=== PATIENT | female | born 1975 | race Caucasian/White ===

== ENCOUNTER → 2016-12-13 | Outpatient (CLI) | payer BC ==
[~2016-12-13] MED LIST: ESCI10TA17 PO; PRENTAB26 PO
--- NOTE | 2016-12-14 13:34 | MAMMOGRAPHY REPORT ---
BILATERAL FIRST EVER DIGITAL SCREENING MAMMOGRAM TOMOSYNTHESIS WITH CAD: 12/13/2016 CLINICAL HISTORY: Routine screening. Baseline exam. TECHNIQUE: Breast tomosynthesis in addition to standard 2D mammography was performed. Current study was also evaluated with a Computer Aided Detection (CAD) system. COMPARISON: No prior exams were available for comparison. BREAST COMPOSITION: The tissue of both breasts is heterogeneously dense, which may obscure small ma sses. FINDINGS: No suspicious masses, calcifications, or areas of architectural distortion are noted in e ither breast. IMPRESSION: ACR BI-RADS CATEGORY 1: NEGATIVE There is no mammographic evidence of malignancy. A 1 year screening mammogram is recommended. The p atient will receive written notification of the results. Approximately 10% of breast cancers are not detected with mammography. A negative mammographic repor t should not delay biopsy if a clinically suggestive mass is present. Emma Dean M.D. ah/:12/13/2016 16:00:10 Paediatrician: Tracie PAL(Kyleigh)(M), [facility] letter sent: Normal 1/2 BI-RADS Code: ACR BI-RADS Category 1: Negative
== END | disposition home or self-care (01) ==
LOC: C.MAMM 15:33
PROVIDERS: ATTEND Obstetrics & Gynecology
DX: Z12.31 Encounter for screening mammogram for malignant neoplasm of breast (principal)

== ENCOUNTER 2024-06-05 08:49 | Inpatient (IN) ==
--- NOTE | 2024-05-02 14:11 | Anesthesiology Consultation ---
Date of Service May 02, 2024 Assessment & Plan (1) Encounter for pre-operative examination: - Per rig operator on 04/29/24: No known infectious disease contacts, current infectious disease symptoms in past 10 days or COVID positive test result in the past 30 days. Chart Review Chart Review: Acceptable Risk for Surgery and Patient NOT seen in Pre Admission Testing History Surgery Operation Date: 06/05/24 08:45 Proposed Procedures p Laparoscopic Sigmoid Colectomy - Aureliano Dos Santos, Height/Weight Height: 5 ft Weight: 68.946 kg Allergies Allergy/AdvReac Type Severity Reaction Status Date / Time animal dander Allergy Intermediate ITCHY, Verified 04/29/24 08:18 WATERY EYES, SNEEZING, CONGESTION pollen extracts Allergy Intermediate ITCHY, Verified 04/29/24 08:18 WATERY EYES, SNEEZING, CONGESTION Dust Allergy Intermediate ITCHY, Uncoded 04/29/24 08:18 WATERY EYS, SNEEZING, CONGESTION Medications Home Medications Medication Instructions Recorded Confirmed Last Taken escitalopram oxalate 10 mg tablet 10 mg PO QPM 04/15/20 04/29/24 04/09/24 (Lexapro) ketotifen fumarate 0.025 % (0.035 1 drp ophthalmic (eye) BID PRN 01/03/23 04/29/24 04/08/24 %) eye drops (Zaditor) allergy symptoms/springtime levocetirizine 5 mg tablet 5 mg PO QAM 01/03/23 04/29/24 04/09/24 hyuctbmvtowq-dexaoshw-whulkj tablet 1 tab PO QAM 03/25/24 04/29/24 04/08/24 omega 4-fzw-oke-fish oil 100 2 cap PO QAM 03/25/24 04/29/24 04/08/24 mg-160 mg-1,000 mg capsule (Fish Oil) pantoprazole 40 mg tablet,delayed 40 mg PO QAM 03/25/24 04/29/24 04/08/24 release Past Medical History Medical History Acid reflux Allergy-induced asthma no inhalers Anxiety Colon cancer (03/2024) Environmental and seasonal allergies History of COVID-2020, [facility] test, not hosp; "cold symptoms", body aches, headache, fatigue>resolved History of migraine History of palpitations intermittent, evaluated by pcp; holter monitor 01/2024; no cardio f/u Hx of colonic polyps x2 polyps found on 04/07/24 Postmenopausal Slow to wake up after anesthesia Past Family History Family History Mother Osteoporosis Dyslipidemia History of ductal carcinoma in situ (DCIS) of breast Hypertension Father WPW (Zebjs-Yiujefaei-Jenxq syndrome) Family history of thyroid dysfunction Family history of reaction to anesthesia difficulty waking Grandfather Prostate cancer Uncle Prostate cancer Other Breast cancer History of hypothyroidism Denies family history of Ovarian cancer Myocardial infarction Colorectal cancer Past Surgical History Surgical History History of appendectomy History of carpal tunnel release RT/LT. History of section, low transverse x2 History of colonoscopy Hx of tubal ligation Hx of wisdom tooth extraction Social History Smoking Status: Never smoker Do You Dip or Chew Tobacco: No Hx Alcohol Use: No Hx Substance Use: No substance use type: does not use Lab Results Anesthesia Preop Results Results Anesthesia Widget: WBC 5.42 K/ul (4.8-10.8) 04/10/24 Hgb 14.2 g/dl (12.0-16.0) 04/10/24 Hct 41.9 % (37.0-47.0) 04/10/24 Plt 336 K/uL (130-400) 04/10/24 Na 141 mmol/L (136-145) 04/10/24 K 3.9 mmol/L (3.5-5.1) 04/10/24 Cl 107 mmol/L (98-107) 04/10/24 CO2 29 mmol/L (21-32) 04/10/24 BUN 11 mg/dl (6-23) 04/10/24 Creat 0.72 mg/dl (0.6-1.2) 04/10/24 Glucose Level 87 mg/dl (70-99(Fasting)) 04/10/24 PT 10.9 Seconds (9.0-12.0) 04/10/24 INR 1.0 (0.9-1.1) 04/10/24 Testing Electrocardiogram Date: 02/08/24 NSR, rate 69 bpm Septal infarct, age undetermined No significant change vs 04/16/[address] 04/10/24 No evidence of metastatic disease above the diaphragm. Abdomen pelvis CT 04/10/24 Trace free fluid in the pelvis may be postprocedural. No findings to suggest metastatic disease. Cardiac event monitor 02/15/24 NSR Very rare premature atrial complexes No evidence of ventricular arrhythmia No pauses greater than 3 seconds or evidence of an AV block Symptoms (heart fluttering and skipped beats) correlated with the timing of PACs with 2 of the 11 documented episodes
--- NOTE | 2024-06-05 07:27 | History & Physical Report ---
Date of Service June 05, 2024 Assessment & Plan (1) Colon cancer: Plan: Clearly this should be resected for definitive treatment. We discussed the risks of the procedure previously. I have answered all of her questions. We will proceed today with laparoscopic sigmoid colon resection. History of Present Illness Primary Care Provider: KIMBERLEE Baxter Cori is a pleasant 48-year-old female who had a routine colonoscopy revealing a small sigmoid colon cancer. The pathology came back after resection and GI subsequently repeated her sigmoidoscopy and placed a tattoo at the site. There have been no major changes to her health history since I seen her last in the office. Allergies Allergy/AdvReac Type Severity Reaction Status Date / Time animal dander Allergy Intermediate ITCHY, Verified 06/05/24 09:07 WATERY EYES, SNEEZING, CONGESTION pollen extracts Allergy Intermediate ITCHY, Verified 06/05/24 09:07 WATERY EYES, SNEEZING, CONGESTION Dust Allergy Intermediate ITCHY, Uncoded 06/05/24 09:07 WATERY EYS, SNEEZING, CONGESTION Home Medications Medication Instructions Recorded Confirmed Type escitalopram oxalate 10 mg tablet 10 mg PO QPM 04/15/20 06/05/24 History (Lexapro) ketotifen fumarate 0.025 % (0.035 1 drp ophthalmic (eye) BID PRN 01/03/23 06/05/24 History %) eye drops (Zaditor) allergy symptoms/springtime levocetirizine 5 mg tablet 5 mg PO QAM 01/03/23 06/05/24 History kvowivcdirrh-dlydrzwx-jouymn tablet 1 tab PO QAM 03/25/24 06/05/24 History omega 6-aii-zym-fish oil 100 2 cap PO QAM 03/25/24 06/05/24 History mg-160 mg-1,000 mg capsule (Fish Oil) pantoprazole 40 mg tablet,delayed 40 mg PO QAM 03/25/24 06/05/24 History release Past Med/Surg History Problem List Colon cancer Postmenopausal Menopausal symptom Encounter for pre-operative examination Anxiety (Acute) Asthma (Acute) allergy-induced; no inh Classic migraine with aura (Acute) hx Medical History Acid reflux Allergy-induced asthma no inhalers Anxiety Colon cancer (03/2024) Environmental and seasonal allergies History of COVID-19 2020, [facility] test, not hosp; "cold symptoms", body aches, headache, fatigue>resolved History of migraine History of palpitations intermittent, evaluated by pcp; holter monitor 01/2024; no cardio f/u Hx of colonic polyps x2 polyps found on 04/07/24 Postmenopausal Slow to wake up after anesthesia Surgical History History of appendectomy History of carpal tunnel release RT/LT. History of section, low transverse x2 History of colonoscopy Hx of tubal ligation Hx of wisdom tooth extraction Family History Mother Osteoporosis Dyslipidemia History of ductal carcinoma in situ (DCIS) of breast Hypertension Father WPW (Jxbvz-Hxkejukya-Dkiul syndrome) Family history of thyroid dysfunction Family history of reaction to anesthesia difficulty waking Grandfather Prostate cancer Uncle Prostate cancer Other Breast cancer History of hypothyroidism Denies family history of Ovarian cancer Myocardial infarction Colorectal cancer Social History Smoking Status: Never smoker Second Hand Exposure: No; Do You Dip or Chew Tobacco: No; Tobacco Cessation Education Requested by Patient: No Hx Alcohol Use: No Hx Substance Use: No Preferred Language: Occitan Communication Ability: Effective 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: No Beliefs That Will Affect Care: None marital status: Current Living Situation: Spouse and Family current occupational status: employed current occupation: [employer] How many Children do You have: 2 Other Information That Helps Us Care for You: No Feels Safe at Home: Yes Safety Concerns: Feels Safe At This Time Diet: regular during the past year weight has: increased > 10 lbs Assistive Devices: Contacts and Glasses Review of Systems All systems reviewed & are unremarkable except as noted in HPI & below Physical Exam Constitutional: WD/WN, vitals as above no acute distress and not ill appearing Eyes: PERRL, conjunctivae normal, anicteric sclerae EOM intact bilaterally ENMT: external ear and nose normal, oropharynx normal Ears: no hearing impairment Neck: trachea midline, no thyromegaly Respiratory: normal respiratory effort; no respiratory distress and does not use accessory muscles Cardiovascular: Rate/Rhythm: regular rate and regular rhythm Gastrointestinal (Abdomen): normal bowel sounds, soft, nontender, no hepatosplenomegaly Skin: no rashes, warm and dry Psychiatric: Orientation: alert, oriented x 3 and cooperative
[~2024-06-05 08:49] MED LIST changes: +ACETAMINOPHEN 1000 MG/100 ML IV IV ONE; -ESCI10TA17 PO; -PRENTAB26 PO
[2024-06-05] MEDS: LR 15ML/HR IV SCH (09:23)
[2024-06-05] MEDS ORDERED: PROMETHAZINE HCL 6.25 MG in SODIUM CHLORIDE 0.9% 50 ML IV PRN (09:24)
[2024-06-05] MEDS ORDERED: ONDANSETRON INJ 2 MG/ML 2 ML VIAL IV PRN (09:24)
[2024-06-05] MEDS ORDERED: HYDROmorphone INJ 2 MG/ML SYR/VIAL IV PRN (09:24)
[2024-06-05] MEDS ORDERED: ATROPINE SULFATE 0.1 MG/ML 10ML SYR IV PRN (09:24)
[2024-06-05] MEDS ORDERED: ePHEDrine sulfate 50 MG/ML AMP IV PRN (09:24)
[2024-06-05] MEDS ORDERED: fentaNYL citrate PF 100 MCG/2 ML VIAL ONE ×2 (10:04→11:32)
[2024-06-05] MEDS ORDERED: MIDAZOLAM HCL 1 MG/ML 2ML VIAL ONE (10:04)
[2024-06-05] MEDS ORDERED: ONDANSETRON INJ 2 MG/ML 2 ML VIAL ONE ×2 (10:05→12:33)
[2024-06-05] MEDS ORDERED: LIDOCAINE 2% 2 ML VIAL/AMP(20MG/ML) INFIL ONE (10:05)
[2024-06-05] MEDS ORDERED: ROCURONIUM BROMIDE 10 MG/ML 5 ML VIAL IV ONE (10:05)
[2024-06-05] MEDS ORDERED: DEXAMETHASONE SOD INJ 4 MG/ML VIAL ONE (10:05)
[2024-06-05] MEDS ORDERED: PROPOFOL IV EMULSION 10 MG/ML 20 ML VIAL IV ONE (10:05)
[2024-06-05] MEDS: ceFAZolin 2000MG 2,000 MG/15 ML SYR IV SCH ×2 (10:26→17:38)
[2024-06-05] MEDS ORDERED: DROPERIDOL 5 MG/2 ML VIAL ONE (10:40)
[2024-06-05] MEDS ORDERED: ePHEDrine sulfate 50 MG/5 ML SYR ONE (11:03)
[2024-06-05] MEDS ORDERED: KETOROLAC 30 MG/ML VIAL ONE (12:34)
[2024-06-05] MEDS ORDERED: GLYCOPYRROLATE 0.2 MG/ML VIAL ONE (12:39)
[2024-06-05] MEDS ORDERED: NEOSTIGMINE METHYLSULFATE 1 MG/ML 10ML VIAL ONE (12:39)
[2024-06-05] MEDS: BUPIVACAINE/EPINEPHRINE 0.5% MPF 1:200,000 30 ML VIAL ONE (12:56)
--- NOTE | 2024-06-05 13:13 | Operative Report ---
PG Post Operative Report Pre & Post Diagnosis Operation Date: 06/05/24 10:15 Pre-Op Diagnosis: Colon Cancer Post-Op Diagnosis: Colon Cancer I identified the patient and participated in the time-out.: Yes Procedure Operation Date: 06/05/24 10:15 Actual Procedures p Laparoscopic Sigmoid Colectomy(Not Applicable) - Aureliano Dos Santos DO Surgeon Aureliano Dos Santos DO Head Of Physics garland herman Estimated Blood Loss 50 Findings Consistent with Post-Op Diagnosis Specimens sigmoid colon Description of Procedure After informed consent was obtained the patient was taken to the operating room placed in supine position. After successful intubation a Gonzalez catheter was placed sterilely. Both arms were tucked. The patient was placed in a low lithotomy position with yellowfin stirrups. The entire abdomen rectum and perineum were sterilely prepped and draped in usual fashion. I began with a supraumbilical incision with an 11 blade scalpel. This was carried down through the soft tissue using cautery. The anterior fascia was opened using cautery and two #0 Vicryl stay sutures were placed. Peritoneum was entered using blunt fing er penetration. Finger sweep was performed. A 12 mm Schroeder trocar was placed and the abdomen was insufflated to 18 mmHg. Laparoscope was inserted and the abdomen examined in 360 degrees. Other than a few adhesions in the right lower quadrant no other abnormalities were identified. A right lower quadrant 12 mm trocar was placed. A right mid abdominal 5 mm trocar and eventually a left lower quadrant 5 mm trocar would all be placed under direct vision. I took down the adhesions using the harmonic scalpel. I then evaluated the sigmoid colon. I was readily able to identify both tattoo dunn in the sigmoid colon. I began by mobilizing the white line of Toldt using blunt dissection and small amounts of harmonic scalpel. We were able to identify the left ureter to keep it out of harm's way. Once I had the colon fully mobilized down over the sacral promontory I then made a small window in the mesentery of the rectosigmoid distal to the tattoo vipul. I then used a JOSE LUIS purple cartridge stapler to transect the rectosigmoid again distal to the distalmost tattoo vipul. I then used traction countertraction and harmonic scalpel to slowly take down the mesentery staying as low as possible to incorporate as many lymph nodes as possible. I carried this up for several inches proximal to the proximal tattoo vipul. At this point we extended the left lower quadrant trocar site including the fascia. I was able to deliver the sigmoid colon out through this incision after toweling it off. Bowel clamps were placed and the bowel was divided and sent to pathology. I did vipul the distal end with suture for orientation purposes. We then used sizers to estimate the lumen size to be 25 mm. 2-0 silk was used to create a handsewn pursestring. The anvil of a 25 mm circular stapler was placed into the end of the bowel and it was secured using the pursestring. This was replaced back into the abdominal cavity. At this point in time we changed our gloves. I closed the fascia of the left lower quadrant incision using #1 PDS in running fashion. We re-insufflated the abdomen. The anvil laid over the sacral promontory without any tension. There was no evidence of any ischemia. Next we brought sizers in through the rectum into the rectal stump. We followed this with the handle of the EEA. The spike was deployed anterior to the staple line. The handle was connected to the anvil, they were secured together and fired creating a functional end-to-end anastomosis. Both donuts were intact and the anastomosis looked patent with no ischemia. We did insufflate the anastomosis under water and it was completely airtight. I thoroughly irrigated the lower abdomen. At the end of the procedure there was adequate hemostasis. A 10 flat Chadwick-Torres drain was placed in the pelvis and brought out through the right lower quadrant trocar site. It was secured the skin using 0 Vicryl. Trocars were all removed and the abdomen desufflated. The fascia the camera port was closed using 0 Vicryl in a [id number] fashion. All the wounds were irrigated. The larger incision was closed using 3-0 Vicryl for deep layers and 4 Monocryl for skin. The smaller incisions were closed using 4-0 Monocryl. Marcaine with epinephrine was injected around them for postoperative analgesia and skin glue used as a dressing. Patient was awakened extubated and transferred to recovery in stable condition. My nurse practitioner was present for the entire case was instrumental in gaining access to the abdomen, running the camera, assisting with the anastomosis, wound closure and dressing placement. I attest to the content of the Intraoperative Record and any orders documented therein. Any exceptions are noted below.
[2024-06-05] MEDS: fentaNYL citrate PF 100 MCG/2 ML VIAL IV PRN (13:50)
--- NOTE | 2024-06-05 14:07 | Anesthesiology Progress Note ---
Date of Service June 05, 2024 Anesthesia Post Procedure Vital Signs Vital Signs: Temp Pulse Pulse Resp BP Pulse Ox O2 Del Method 06/05/24 14:00 86 14 112/61 96 Nasal Cannula 06/05/24 13:50 85 16 129/60 90 Room Air 06/05/24 13:40 85 14 127/63 94 Room Air 06/05/24 13:30 87 16 110/61 94 Room Air 06/05/24 13:20 83 18 124/62 100 Oxymask 06/05/24 13:09 36.2 C L 89 16 129/68 96 Oxymask 06/05/24 09:12 37.1 C 69 18 123/78 95 Room Air O2 Flow Rate 06/05/24 14:00 2 06/05/24 13:50 06/05/24 13:40 06/05/24 13:30 06/05/24 13:20 3 06/05/24 13:09 6 06/05/24 09:12 Pain Intensity Abdomen: Pain Intensity: 4 Transfer of Care Handoff Completed per policy Notes Mental Status: alert / awake / arousable Patient Amnestic to Procedure: Yes Nausea / Vomiting: adequately controlled Pain: adequately controlled Airway Patency, RR, SpO2: stable & adequate BP & HR: stable & adequate Hydration State: stable & adequate Anesthetic Complications: no major complications apparent and Pt Satisfied with anesthetic care
[2024-06-05] MEDS ORDERED: MoRPHine SULFATE 2 MG/ML CARP IV PRN (14:46)
[2024-06-05] MEDS ORDERED: MoRPHine SULFATE 4 MG/ML 1 ML CARP\\VIAL IV PRN (14:46)
[2024-06-05] MEDS: LACTATED RINGER'S 1,000 ML IV SCH (14:57)
[2024-06-05] MEDS: ACETAMINOPHEN 1,000 MG/100 ML VIAL IV SCH (14:57)
--- NOTE | 2024-06-05 20:07 | Communication Note ---
Date of Service: June 05, 2024 I was called by nursing staff at approximately 7:40 PM. This patient was complaining of pain in her right eye saying it felt irritated and as though she had scratched it. I presented to the bedside within 5 minutes to evaluate the patient. The patient was resting comfortably in bed. As noted above she felt as though she had scratched her eye. She does note that it is somewhat difficult to keep the eye open but she denies any blurry or loss of vision she does note that her eye is watering. She offers no other complaints. On physical exam the patient's eye was intermittently watering with clear fluid. Pupils were equal round reactive to light and accommodation. Her extraocular motions are intact. Patient's visual acuity appeared intact and she was able to read a small print book at the bedside with her affected eye. She could also identify large objects from a distance of approximately 5 feet. I suspect the patient has a corneal abrasion. I discussed with ophthalmology in addition to corneal abrasion patient could merely have a dry spot on her cornea which would have similar symptomatology. Erythromycin ointment was recommended as a treatment. I discussed dosing with pharmacy and this has been ordered to begin this evening. Will continue to monitor the patient.
[2024-06-05] MEDS: ESCITALOPRAM OXALATE 10 MG TAB PO SCH (20:24)
[2024-06-05] MEDS: ERYTHROMYCIN OP OINT 5 MG/GM 3.5 GM TUBE OPR SCH (21:34)
[2024-06-06] MEDS: oxyCODONE HCL IR 5 MG TAB (IMMEDIATE RELEASE) PO PRN ×2 (03:18→20:31)
[2024-06-06] MEDS: ONDANSETRON INJ 2 MG/ML 2 ML VIAL IV PRN (04:01)
[2024-06-06] MEDS: PANTOprazole 40 MG TAB PO SCH (07:51)
[2024-06-06] MEDS: CETIRIZINE HCL 10 MG TABLET PO SCH (07:51)
--- NOTE | 2024-06-06 07:58 | Surgery Progress Note ---
Date of Service June 06, 2024 Assessment & Plan (1) S/P laparoscopic-assisted sigmoidectomy: Plan: POD#1 lap sigmoidectomy Labs this AM are pending. Vitals are stable, pt afebrile Continue sips/chips this AM, may consider clears later if no further nausea Will discuss with RN urine output as only 100cc documented and make determination of woods removal today vs karen Awaiting hbg results, if stable will start dvt ppx MADHAV drain to remain in place Awaiting return of bowel function Erythromycin to eyes for concern of corneal abrasion, symptoms improved Encourage pulmonary toilet and ambulation [facility] covering the wknd as above. doing well. feeling much better since woods removed. eye pain much improved as well. earlier nausea resolved as well ice chips/sips for now. if she does well over the weekend she may have clears tomorrow. Admission and Anticipated Discharge Date Admission Date: June 05, 2024 Subjective Patient feeling pretty well, had an episode of pain at 3am in lower abdomen and received some pain meds. Mild nausea and received some zofran. Otherwise symptoms controlled this AM. Eye discomfort she said is 100% better than yesterday and no issues from that standpoint. Physical Exam Physical Exam: awake/alert, no distress Respiratory: normal respiratory effort Gastrointestinal (Abdomen): Inspection/Auscultation: + abdominal surgical incision (c/d/i with skin glue, no signs of infection) and + abdominal surgical drain present (serosang, 40cc documented) Percussion/Palpation: + abdomen tender (expected yamilex incisional discomfort to palpation ) and abdomen soft Results & Data Vital Signs (Past 12 Hours) Vital Signs Temp Pulse Pulse Resp BP Pulse Ox O2 Del Method 06/06/24 07:16 98.6 F 91 H 18 111/69 98 Room Air 06/06/24 03:40 98.1 F 90 16 117/73 93 Nasal Cannula 06/05/24 23:55 98.8 F 103 H 16 110/69 95 Nasal Cannula 06/05/24 21:14 99.0 F 106 H 16 109/69 98 Nasal Cannula O2 Flow Rate 06/06/24 07:16 06/06/24 03:40 2 06/05/24 23:55 2 06/05/24 21:14 2 PG Care Time/CCT Total # of Minutes Spent Total Time Spent with Patient: Total time spent is greater than 50% in coordination of care (as documented) at patient's floor/unit and/or counseling patient: Coding Level of Care Code 82074 Post Operative Follow-Up Diagnoses S/P laparoscopic-assisted sigmoidectomy Z90.49
[2024-06-06 08:05] LABS: Basophils # (auto) 0.01 K/uL (0.00-0.20); Basophils % (auto) 0.1 %; Hematocrit (blood only) 38.3 % (37.0-47.0); Hemoglobin 13.1 g/dl (12.0-16.0); Immature Granulocytes # (auto) 0.05 K/uL (0.01-0.20); Immature Granulocytes % (auto) 0.3 %; Lymphocytes # (auto) 1.09 K/uL (1.20-3.40); Lymphocytes % (auto) 7.4 %; Mean Corpuscular Hemoglobin 29.2 pg (25.0-34.0); Mean Corpuscular Hgb Conc 34.2 g/dL (32.0-36.0); Mean Corpuscular Volume 85.5 fL (80.0-100.0); Mean Platelet Volume 9.4 fL (9.4-12.4); Monocytes # (auto) 0.92 K/uL (0.11-0.59); Monocytes % (auto) 6.2 %; Neutrophils # (auto) 12.67 K/uL (1.40-6.50); Platelet Count 327 K/uL (130-400); RDW Coefficient of Variation 12.4 % (11.5-14.5); Red Blood Count 4.48 M/uL (4.20-5.40); White Blood Count 14.74 K/ul (4.8-10.8)
[2024-06-06 09:58] LABS: Creatinine Clr Calc Pharmacy 86.9 ml/min; Est GFR (African American) 118.8 ml/min; Est GFR (Non-African American) 102.5 ml/min
[2024-06-06] MEDS: ENOXAPARIN INJ 40 MG/0.4 ML SYR SQ SCH (10:03)
[2024-06-07 08:42] LABS: Basophils # (auto) 0.03 K/uL (0.00-0.20); Basophils % (auto) 0.4 %; Eosinophils # (auto) 0.07 K/uL (0.00-0.50); Eosinophils % (auto) 0.9 %; Hematocrit (blood only) 37.3 % (37.0-47.0); Hemoglobin 12.4 g/dl (12.0-16.0); Immature Granulocytes # (auto) 0.02 K/uL (0.01-0.20); Immature Granulocytes % (auto) 0.3 %; Lymphocytes # (auto) 2.07 K/uL (1.20-3.40); Lymphocytes % (auto) 27.2 %; Mean Corpuscular Hemoglobin 29.2 pg (25.0-34.0); Mean Corpuscular Hgb Conc 33.2 g/dL (32.0-36.0); Mean Platelet Volume 9.2 fL (9.4-12.4); Monocytes # (auto) 0.62 K/uL (0.11-0.59); Monocytes % (auto) 8.2 %; Neutrophils # (auto) 4.79 K/uL (1.40-6.50); Platelet Count 262 K/uL (130-400); RDW Coefficient of Variation 12.4 % (11.5-14.5); RDW Standard Deviation 40.2 fL (36.4-46.3); Red Blood Count 4.24 M/uL (4.20-5.40)
[2024-06-07 09:00] LABS: BUN Creatinine Ratio 21.3 (10-20); Calcium 8.3 mg/dl (8.6-10.3); Creatinine Clr Calc Pharmacy 95.4 ml/min; Est GFR (African American) 122.5 ml/min; Est GFR (Non-African American) 105.7 ml/min; Potassium 3.8 mmol/L (3.5-5.1)
--- NOTE | 2024-06-07 12:08 | Surgery Progress Note ---
Date of Service June 07, 2024 Assessment & Plan (1) S/P laparoscopic-assisted sigmoidectomy: Plan: POD#2 lap sigmoidectomy advance to clears. Stop fluids MADHAV drain to remain in place Awaiting return of bowel function Erythromycin to eyes for concern of corneal abrasion, symptoms improved Encourage pulmonary toilet and ambulation Admission and Anticipated Discharge Date Admission Date: June 05, 2024 Subjective Patient feeling pretty well, no nausea or vomiting, positive flatus, no bowel movements Physical Exam Physical Exam: awake/alert, no distress Gastrointestinal (Abdomen): Inspection/Auscultation: + abdominal surgical incision (c/d/i with skin glue, no signs of infection) and + abdominal surgical drain present (serosang, 40cc documented) Percussion/Palpation: + abdomen tender (expected yamilex incisional discomfort to palpation ) and abdomen soft Results & Data Vital Signs (Past 12 Hours) Vital Signs Temp Pulse Resp BP Pulse Ox O2 Del Method 06/07/24 07:57 37.1 C 79 18 109/70 92 Room Air Laboratory Results 06/07/24 Range/Units 08:00 WBC 7.60 (4.8-10.8) K/ul RBC 4.24 (4.20-5.40) M/uL Hgb 12.4 (12.0-16.0) g/dl Hct 37.3 (37.0-47.0) % MCV 88.0 (80.0-100.0) fL MCH 29.2 (25.0-34.0) pg MCHC 33.2 (32.0-36.0) g/dL RDW Std Deviation 40.2 (36.4-46.3) fL RDW Coeff of Mark 12.4 (11.5-14.5) % Plt Count 262 (130-400) K/uL MPV 9.2 L (9.4-12.4) fL Immature Gran % (Auto) 0.3 % Neut % (Auto) 63.0 % Lymph % (Auto) 27.2 % Banner % (Auto) 8.2 % Eos % (Auto) 0.9 % Baso % (Auto) 0.4 % Neut # (Auto) 4.79 (1.40-6.50) K/uL Lymph # (Auto) 2.07 (1.20-3.40) K/uL Banner # (Auto) 0.62 H (0.11-0.59) K/uL Eos # (Auto) 0.07 (0.00-0.50) K/uL Baso # (Auto) 0.03 (0.00-0.20) K/uL Immature Gran # (Auto) 0.02 (0.01-0.20) K/uL Sodium 141 (136-145) mmol/L Potassium 3.8 (3.5-5.1) mmol/L Chloride 106 (98-107) mmol/L Carbon Dioxide 30 (21-32) mmol/L Anion Gap 5 (3-11) BUN 13 (6-23) mg/dl Creatinine 0.61 (0.6-1.2) mg/dl Est Cr Clr Drug Dosing 95.4 ml/min Est GFR ( Amer) 122.5 ml/min Est GFR (Non-Af Amer) 105.7 ml/min BUN/Creatinine Ratio 21.3 H (10-20) Glucose 74 (70-99(Fasting)) mg/dl Calcium 8.3 L (8.6-10.3) mg/dl
[2024-06-08 07:26] LABS: Basophils # (auto) 0.03 K/uL (0.00-0.20); Basophils % (auto) 0.4 %; Eosinophils # (auto) 0.32 K/uL (0.00-0.50); Eosinophils % (auto) 4.2 %; Hematocrit (blood only) 40.1 % (37.0-47.0); Hemoglobin 13.4 g/dl (12.0-16.0); Immature Granulocytes # (auto) 0.03 K/uL (0.01-0.20); Immature Granulocytes % (auto) 0.4 %; Lymphocytes # (auto) 1.79 K/uL (1.20-3.40); Lymphocytes % (auto) 23.8 %; Mean Corpuscular Hemoglobin 28.7 pg (25.0-34.0); Mean Corpuscular Hgb Conc 33.4 g/dL (32.0-36.0); Mean Corpuscular Volume 85.9 fL (80.0-100.0); Monocytes # (auto) 0.72 K/uL (0.11-0.59); Monocytes % (auto) 9.6 %; Neutrophils # (auto) 4.64 K/uL (1.40-6.50); Neutrophils % (auto) 61.6 %; Platelet Count 270 K/uL (130-400); RDW Coefficient of Variation 12.1 % (11.5-14.5); RDW Standard Deviation 37.9 fL (36.4-46.3); Red Blood Count 4.67 M/uL (4.20-5.40); White Blood Count 7.53 K/ul (4.8-10.8)
[2024-06-08 07:48] LABS: BUN Creatinine Ratio 16.7 (10-20); Calcium 8.7 mg/dl (8.6-10.3); Creatinine Clr Calc Pharmacy 107.8 ml/min; Est GFR (African American) 127.5 ml/min; Potassium 3.8 mmol/L (3.5-5.1)
--- NOTE | 2024-06-08 11:14 | Surgery Progress Note ---
Date of Service June 08, 2024 Assessment & Plan (1) S/P laparoscopic-assisted sigmoidectomy: Plan: POD#3 lap sigmoidectomy advance to soft diet MADHAV drain to remain in place Awaiting return of bowel function Erythromycin to eyes for concern of corneal abrasion, symptoms improved Encourage pulmonary toilet and ambulation possible home tomorrow Admission and Anticipated Discharge Date Admission Date: June 05, 2024 Subjective Patient feeling pretty well, no nausea or vomiting, positive flatus, no bowel movements Physical Exam Physical Exam: awake/alert, no distress Gastrointestinal (Abdomen): Inspection/Auscultation: + abdominal surgical incision (c/d/i with skin glue, no signs of infection) and + abdominal surgical drain present (serosang, 40cc documented) Percussion/Palpation: + abdomen tender (expected yamilex incisional discomfort to palpation ) and abdomen soft Results & Data Vital Signs (Past 12 Hours) Vital Signs Temp Pulse Resp BP Pulse Ox O2 Del Method 06/08/24 07:25 36.7 C 60 16 124/79 95 Room Air 06/08/24 03:39 36.8 C 77 16 115/74 94 Room Air
[2024-06-08] MEDS: ACETAMINOPHEN 500 MG TAB PO PRN (19:50)
[2024-06-08 20:23] VITALS: RESP 16; O2SAT 95
[2024-06-09 07:13] LABS: Basophils # (auto) 0.04 K/uL (0.00-0.20); Basophils % (auto) 0.6 %; Eosinophils % (auto) 5.5 %; Hematocrit (blood only) 41.3 % (37.0-47.0); Hemoglobin 13.9 g/dl (12.0-16.0); Immature Granulocytes # (auto) 0.04 K/uL (0.01-0.20); Immature Granulocytes % (auto) 0.6 %; Lymphocytes # (auto) 1.94 K/uL (1.20-3.40); Lymphocytes % (auto) 26.7 %; Mean Corpuscular Hgb Conc 33.7 g/dL (32.0-36.0); Mean Platelet Volume 9.2 fL (9.4-12.4); Monocytes # (auto) 0.69 K/uL (0.11-0.59); Monocytes % (auto) 9.5 %; Neutrophils # (auto) 4.15 K/uL (1.40-6.50); Neutrophils % (auto) 57.1 %; Platelet Count 310 K/uL (130-400); RDW Coefficient of Variation 12.1 % (11.5-14.5); RDW Standard Deviation 37.8 fL (36.4-46.3); White Blood Count 7.26 K/ul (4.8-10.8)
[2024-06-09 07:36] LABS: BUN Creatinine Ratio 21.5 (10-20); Calcium 8.9 mg/dl (8.6-10.3); Creatinine Clr Calc Pharmacy 89.5 ml/min; Est GFR (Non-African American) 103.5 ml/min
[2024-06-09 07:56] VITALS: BP 99/62; PULSE 67; TEMP 98.2
--- NOTE | 2024-06-09 08:41 | Surgery Progress Note ---
Date of Service June 09, 2024 Assessment & Plan (1) S/P laparoscopic-assisted sigmoidectomy: Plan: Doing well. Okay for discharge. Pathology still pending Remove MADHAV prior to discharge. Home on low fiber diet. Follow-up in 1 week Admission and Anticipated Discharge Date Admission Date: June 05, 2024 Subjective Patient seen. Doing well. Had 1 small bowel movement over the weekend. She is tolerating diet. She has had no fevers. She has no nausea Physical Exam Physical Exam: Alert no acute distress MADHAV drain with small amount of pink serous fluid. Incisions look good Results & Data Vital Signs (Past 12 Hours) Vital Signs Temp Pulse Resp BP Pulse Ox O2 Del Method 06/09/24 07:55 36.8 C 67 16 99/62 L 95 Room Air PG Care Time/CCT Total # of Minutes Spent Total Time Spent with Patient: Total time spent is greater than 50% in coordination of care (as documented) at patient's floor/unit and/or counseling patient: Coding Level of Care Code 63412 Post Operative Follow-Up Diagnoses S/P laparoscopic-assisted sigmoidectomy Z90.49
--- NOTE | 2024-06-11 11:51 | Discharge Summary ---
Date of Service June 09, 2024 Admission HPI Per Admitting Provider Cori is a pleasant 48-year-old female who had a routine colonoscopy revealing a small sigmoid colon cancer. The pathology came back after resection and GI subsequently repeated her sigmoidoscopy and placed a tattoo at the site. There have been no major changes to her health history since I seen her last in the office. Principal Diagnosis s/p laparoscopic assisted sigmoidectomy colon cancer Discharge Exam awake/alert, no distress Respiratory normal respiratory effort Gastrointestinal (Abdomen) Inspection/Auscultation: + abdominal surgical incision (c/d/i with skin glue) and + abdominal surgical drain present (serosanguineous ) Percussion/Palpation: abdomen soft Discharge Data Allergies Allergy/AdvReac Type Severity Reaction Status Date / Time animal dander Allergy Intermediate ITCHY, Verified 06/05/24 09:07 WATERY EYES, SNEEZING, CONGESTION pollen extracts Allergy Intermediate ITCHY, Verified 06/05/24 09:07 WATERY EYES, SNEEZING, CONGESTION Dust Allergy Intermediate ITCHY, Uncoded 06/05/24 09:07 WATERY EYS, SNEEZING, CONGESTION Procedures Performed Operation Date: 06/05/24 10:15 Actual Procedures p Laparoscopic Sigmoid Colectomy(Not Applicable) - Aureliano Dos Santos, DO Hospital Course (1) S/P laparoscopic-assisted sigmoidectomy: This is a 48yF who presented to the [facility] on 06/05/24 for an electively scheduled lap assisted sigmoidectomy with Dr. Dos Santos. The patient tolerated the procedure well, see op note for full details. The patient was admitted under the surgery service and transferred to the med/surg floor in stable condition. She was ordered for IVF, sips/chips ,prn pain meds, woods catheter, and 24 hrs antibiotics. Postop day 1 her woods was removed and she was able to void without issues. She remained on IVF and sips/chips. Pain controlled on prn meds. Activity encouraged. On POD#2 she began having + bowel function, first with flatus, then eventually BM's. As her bowels opened up her diet was advanced from clears to fulls to low fiber. Pain was well controlled and incisions remained clean/dry/intact. Her MADHAV drain remained serosanguineous and was removed prior to discharge. On 06/09 the patient was deemed stable for discharge to home. low fiber tolerated, + bowel function, and pain controlled. She was instructed to follow up in the office within 2 weeks time. (2) Colon cancer: Total Time Total Time Spent Total Time Spent (In Minutes): 15 Discharge Plan Discharge Items Patient Disposition: Home - Self-Care Reason For Visit: s/p lap assist sigmoidectomy Discharge Diagnosis: sigmoid colectomy Activity: Per Instructions section Lifting: No more than 10 pounds Bathing Comment: may shower; no soaking in tubs/pools x 2 weeks Exercise/Sports: Wait until after follow-up appointment Driving/Machine Use: no driving while on narcotics for pain Non-emergency contact: Surgeon Call non-emergency contact if: you have any medication questions, your pain is not controlled, you have a fever, your temperature is above 101.5, your wound has increased redness, your wound has increased drainage and your wound pain has increased Follow-up/Referrals: Aureliano Dos Santos, [Surgeon] - (please call to schedule follow up in clinic within 2 weeks) Shell Brown CRNP [Primary Care Provider] - Diet: Low Fiber Diet Comment: low fiber Addtl Attending Provider Instructions: please continue on a low fiber diet until your follow up appointment you may shower. no tub soaks you may use ibuprofen 600 mg every 8 hours as needed for pain your incisions have glue which will fall off on it's own. do not pick at it Pending Studies at Discharge: Yes Studies:: surgical pathology Stand-Alone Forms: [facility], Pain - Opioid Pain Management Medications and DC Order Prescriptions: New oxycodone-acetaminophen 5-325 mg tablet 1 tab PO Q8H PRN (Reason: pain) Qty: 15 0RF Continued escitalopram oxalate [Lexapro] 10 mg Tablet 10 mg PO QPM ketotifen fumarate [Zaditor] 0.025 % (0.035 %) Drops 1 drp OPHTHALMIC (EYE) BID PRN (Reason: allergy symptoms/springtime) Rx Instructions: administer at least 8 hours apart levocetirizine 5 mg Tablet 5 mg PO QAM pantoprazole 40 mg Tablet,Delayed Release (Dr/Ec) 40 mg PO QAM [id number] Tablet 1 tab PO QAM Fish Oil 100-160-1,000 mg Capsule 2 cap PO QAM Discharge Orders: Discharge Order (Routine); Ordered 06/09/24 Ordered By: Aureliano Dos Santos Admission Data Admit Date/Time: 06/05/24 13:23 Attending Provider: Aureliano Dos Santos Admit Provider: Aureliano Dos Santos Primary Care Provider: Shell Brown Other Interventions: Discharge Summary Assessment (RN) Last Done: 06/09/24 09:32 Coding Level of Care Code 17819 IN/OBS DISCH 30 MIN/LESS Diagnoses S/P laparoscopic-assisted sigmoidectomy Z90.49 Colon cancer C18.9
== END 2024-06-09 10:52 | disposition home or self-care (01) | DRG 331 ==
LOC: ASU 08:49 → 3W 13:23